=== PATIENT | male | born 1975 | race Caucasian/White ===

== ENCOUNTER 2017-10-15 14:48 | Emergency (ER) | payer MEDICARE ==
[2017-10-15] MEDS ORDERED: TORADOL IM ONE (16:50)
[2017-10-15 17:09] LABS: Basophils # (Auto) 0.1 K/mm3 (0.0-0.1); Basophils % (Auto) 0.4 % (0.0-1.8); Eosinophils # (Auto) 0.5 K/mm3 (0.0-0.4); Eosinophils % (Auto) 4.3 % (0.0-4.3); Hematocrit 40.2 % (35.5-45.6); Hemoglobin 13.3 gm/dl (11.8-15.2); Lymphocytes # (Auto) 1.4 K/mm3 (1.2-5.4); Lymphocytes % (Auto) 11.6 % (13.4-35.0); Mean Corpuscular HGB Conc 33 % (32-34); Mean Corpuscular Hemoglobin 27 pg (28-32); Mean Corpuscular Volume 81 fl (84-94); Monocytes # (Auto) 0.6 K/mm3 (0.0-0.8); Monocytes % (Auto) 5.2 % (0.0-7.3); Platelet Count 352 K/mm3 (140-440); Red Blood Count 4.96 M/mm3 (3.65-5.03); Red Cell Distribution Width 13.1 % (13.2-15.2)
[2017-10-15 17:31] LABS: BUN/Creatinine Ratio 17; Blood Urea Nitrogen 10 mg/dL (9-20); Calcium 8.9 mg/dL (8.4-10.2); Hemolysis Index 9
--- NOTE | 2017-10-15 18:40 | Emergency Department Report ---
- General Chief Complaint: Back Pain/Injury Stated Complaint: BODY PAIN Time Seen by Provider: 10/15/17 16:49 Source: patient Mode of arrival: Ambulatory Limitations: No Limitations - History of Present Illness Initial Comments: 41-year-old male presents with complaint of 2 weeks of body aches upper respiratory symptoms and cough. Patient states he was placed on course of antibiotics recently, states he was on azithromycin. Awake alert and oriented 3. Denies any current cough nausea vomiting. States he feels slightly weaker than usual. Patient denies abdominal pain dysuria or increased urinary frequency flank pain. Denies any shortness of breath or pleuritic chest pain. States his primary complaint is of diffuse body aches. Denies any trauma to chest or back. Patient is ambulatory without assistance. Denies palpitations. Denies any recent surgeries history of DVT or PE denies any steroid use. Patient traveled and is visiting [place] from [place]. Complaint: other (malaise) Onset/Timin -: week(s) Severity: moderate Quality: aching Consistency: intermittent Improves With: nothing Context: recent travel (states he traveled from [place] within the last 2 weeks) - Related Data Previous Rx's Medication Instructions Recorded Last Taken Type Acetaminophen/Codeine [Tylenol 1 tab PO Q6H PRN #8 tab 10/15/17 Unknown Rx /Codeine # 3 tab] Albuterol Sulfate [Ventolin Hfa] 1 gm IH Q4H PRN #1 hfa.aer.ad 10/15/17 Unknown Rx Levofloxacin [Levaquin TAB] 500 mg PO QDAY #6 tablet 10/15/17 Unknown Rx Naproxen 500 mg PO BID PRN #20 tablet 10/15/17 Unknown Rx ED Review of Systems ROS: Stated complaint: BODY PAIN Other details as noted in HPI Constitutional: malaise (2 weeks of ongoing malaise and body aches). denies: chills, fever Eyes: denies: eye pain, eye discharge, vision change ENT: denies: ear pain, throat pain Respiratory: denies: cough, shortness of breath, wheezing Cardiovascular: denies: chest pain, palpitations Endocrine: no symptoms reported Gastrointestinal: denies: abdominal pain, nausea, diarrhea Genitourinary: denies: urgency, dysuria Musculoskeletal: denies: back pain, joint swelling, arthralgia Skin: denies: rash, lesions Neurological: denies: headache, weakness, paresthesias Psychiatric: denies: anxiety, depression Hematological/Lymphatic: denies: easy bleeding, easy bruising ED Past Medical Hx - Past Medical History Previous Medical History?: No - Surgical History Past Surgical History?: No - Social History Smoking Status: Never Smoker Substance Use Type: None - Medications Home Medications: Home Medications Medication Instructions Recorded Confirmed Last Taken Type Acetaminophen/Codeine [Tylenol 1 tab PO Q6H PRN #8 tab 10/15/17 Unknown Rx /Codeine # 3 tab] Albuterol Sulfate [Ventolin Hfa] 1 gm IH Q4H PRN #1 hfa.aer.ad 10/15/17 Unknown Rx Levofloxacin [Levaquin TAB] 500 mg PO QDAY #6 tablet 10/15/17 Unknown Rx Naproxen 500 mg PO BID PRN #20 tablet 10/15/17 Unknown Rx ED Physical Exam - General Limitations: No Limitations General appearance: alert, in no apparent distress - Head Head exam: Present: atraumatic, normocephalic - Eye Eye exam: Present: normal appearance, PERRL, EOMI - ENT ENT exam: Present: mucous membranes moist - Neck Neck exam: Present: normal inspection, full ROM - Respiratory Respiratory exam: Present: normal lung sounds bilaterally (lungs clear to auscultation bilaterally). Absent: respiratory distress - Cardiovascular Cardiovascular Exam: Present: regular rate, normal rhythm. Absent: systolic murmur, diastolic murmur, rubs, gallop - GI/Abdominal GI/Abdominal exam: Present: soft (abdomen soft nontender nondistended four quadrants), normal bowel sounds - Rectal Rectal exam: Present: deferred - Extremities Exam Extremities exam: Present: normal inspection - Back Exam Back exam: Present: normal inspection - Neurological Exam Neurological exam: Present: alert, oriented X3, CN II-XII intact, normal gait - Psychiatric Psychiatric exam: Present: normal affect, normal mood - Skin Skin exam: Present: warm, dry, intact, normal color. Absent: rash ED Course Vital Signs 10/15/17 10/15/17 10/15/17 15:36 18:56 18:57 Temperature 98 F Pulse Rate 76 Respiratory 16 18 18 Rate Blood Pressure 142/89 O2 Sat by Pulse 96 Oximetry ED Medical Decision Making - Lab Data Result diagrams: 10/15/17 17:00 10/15/17 17:00 - Medical Decision Making A/P: URI, viral syndrome, left-sided infiltrates on chest x-ray, possible flulike syndrome 1-discussed with Dr. Delcid, will treat patient empirically with course of Levaquin 2-short course no code when necessary, naproxen when necessary, inhaler when necessary 3-vital signs stable for discharge 4- I emphasized to the patient should return to the ED for any persistent fevers above 100.4 Fahrenheit. Patient tolerating by mouth fluid and food without difficulty. I advised patient to follow up with primary care or to return to the ED for any inability to tolerate by mouth fluid or food persistent nausea and vomiting severe fevers/chills or fevers persistently above 100.4F despite antipyretic use, severe lethargy, chest pain, palpitations , shortness of breath at rest. Patient stated he understood my instructions. I advised patient to remain well-hydrated. Patient stated he understood my instructions Critical care attestation.: If time is entered above; I have spent that time in minutes in the direct care of this critically ill patient, excluding procedure time. ED Disposition Clinical Impression: Pulmonary infiltrates on CXR, Flu-like symptoms Disposition: - TO HOME OR SELFCARE Is pt being admited?: No Does the pt Need Aspirin: No Condition: Stable Instructions: Viral Syndrome (ED), Pneumonia (ED) Prescriptions: Acetaminophen/Codeine [Tylenol /Codeine # 3 tab] 1 tab PO Q6H PRN #8 tab PRN Reason: Pain Albuterol Sulfate [Ventolin Hfa] 1 gm IH Q4H PRN #1 hfa.aer.ad PRN Reason: Cough Levofloxacin [Levaquin TAB] 500 mg PO QDAY #6 tablet Naproxen 500 mg PO BID PRN #20 tablet PRN Reason: Pain Referrals: [facility] [Provider Group] - 3-5 Days Time of Disposition: 20:27
--- NOTE | 2017-10-15 18:40 | Emergency Department Report ---
Chief Complaint: Back Pain/Injury Stated Complaint: BODY PAIN Time Seen by Provider: 10/15/17 16:49 - HPI History of Present Illness: The patient's 41-year-old male presents for evaluation of thoracic and back pain. The patient reports 12 days of bilateral shoulder and low back pain. He states that his pain has been constant, sore aching in quality, exacerbated with movement, mildly relieved with ibuprofen. He says he was diagnosed with respiratory infection 2 weeks ago and treated with a Z-Alan. The patient denies blunt trauma to the back or shoulders, fall, fever, chills, night sweats, saddle anesthesia, paresthesias, numbness or tingling in the legs, leg weakness , urine or bowel incontinence or retention, difficulty ambulating, or other focal neurological deficits. The patient also denies redness or swelling to the back, IV drug use, history of cancer. - Exam Vital Signs: Vital Signs 10/15/17 15:36 Temperature 98 F Pulse Rate 76 Respiratory 16 Rate Blood Pressure 142/89 O2 Sat by Pulse 96 Oximetry MSE screening note: Focused history and physical exam performed. Due to findings the following was ordered: ED Medical Decision Making - Lab Data Result diagrams: 10/15/17 17:00 10/15/17 17:00 ED Disposition for MSE Condition: Stable Referrals: PRIMARY CARE, [Primary Care Provider] - 3-5 Days
[2017-10-15] MEDS ORDERED: NORCO 5/325 PO ONE (18:45)
[2017-10-15] MEDS ORDERED: TYLENOL PO ONE (18:45)
[2017-10-15] MEDS ORDERED: ZOFRAN ODT PO ONE (18:45)
--- NOTE | 2017-10-15 19:03 | XRay Report ---
FINAL REPORT PROCEDURE: XR SPINE THORACIC 3V TECHNIQUE: Thoracic spine radiographs, including AP and lateral projections. CPT 95240 HISTORY: Low back pain. COMPARISON: No prior studies are available for comparison. FINDINGS: Alignment: Normal . Vertebral body height: Normal . Disk spaces: Normal . Fracture(s): None . Bone mineralization: Normal . IMPRESSION: No radiographic evidence of acute abnormality. Limited visualization of the upper thoracic spine due to overlying structures.
--- NOTE | 2017-10-15 19:05 | XRay Report ---
FINAL REPORT PROCEDURE: XR CHEST ROUTINE 2V TECHNIQUE: PA and lateral chest radiographs were obtained. CPT 07218 HISTORY: Dyspnea. COMPARISON: Thoracic spine radiographs dated same day and time FINDINGS: Heart: Normal. Mediastinum/Vessels: Normal. Lungs/Pleural space: Mild left lower lobe opacity. Bony thorax: No acute osseous abnormality. Other: IMPRESSION: Left lower lobe opacity consider atelectasis. Cannot exclude pneumonia.
[2017-10-15] MEDS ORDERED: LEVAQUIN PO ONE (19:20)
[2017-10-15 20:25] VITALS: BP 107/65
== END 2017-10-15 20:44 | disposition home or self-care (01) ==
LOC: ED 14:48
DX: R91.8 Other nonspecific abnormal finding of lung field (principal)
CPT/HCPCS: 36415; 71046; 72072; 80048; 82550; 85025; 93005; 93010; 96372; 99284; J1885; Q0162

== ENCOUNTER 2017-10-16 11:47 | Inpatient (IN) | payer MEDICAID, MEDICARE ==
[2017-10-16 13:27] LABS: Bilirubin,Urine NEG (Negative); Blood,Urine NEG (Negative); Color,Urine Yellow (Yellow); Protein,Urine <15 mg/dL mg/dL (Negative); Urobilinogen,Urine < 2.0 mg/dL (<2.0)
[2017-10-16] MEDS ORDERED: NACL 0.9% 1000 ML 1,000 ML IV ONE ×2 (15:17→18:58)
[2017-10-16] MEDS ORDERED: MORPHINE IV ONE (15:18)
[2017-10-16 15:44] LABS: Basophils % (Auto) 0.4 % (0.0-1.8); Eosinophils # (Auto) 0.4 K/mm3 (0.0-0.4); Hematocrit 38.9 % (35.5-45.6); Hemoglobin 13.2 gm/dl (11.8-15.2); Lymphocytes # (Auto) 1.6 K/mm3 (1.2-5.4); Lymphocytes % (Auto) 15.2 % (13.4-35.0); Mean Corpuscular HGB Conc 34 % (32-34); Mean Corpuscular Hemoglobin 27 pg (28-32); Mean Corpuscular Volume 80 fl (84-94); Monocytes # (Auto) 0.7 K/mm3 (0.0-0.8); Monocytes % (Auto) 6.6 % (0.0-7.3); Platelet Count 351 K/mm3 (140-440); Red Blood Count 4.89 M/mm3 (3.65-5.03); Red Cell Distribution Width 13.3 % (13.2-15.2)
[2017-10-16 15:55] LABS: Bilirubin,Urine NEG (Negative); Blood,Urine NEG (Negative); Color,Urine Yellow (Yellow); Mucus,Urine FEW /HPF; Protein,Urine <15 mg/dL mg/dL (Negative); Urobilinogen,Urine < 2.0 mg/dL (<2.0)
[2017-10-16 16:02] LABS: Lipase 54 units/L (13-60)
[2017-10-16 16:07] LABS: Alanine Aminotransferase 14 units/L (7-56); Albumin 3.7 g/dL (3.9-5); BUN/Creatinine Ratio 13; Blood Urea Nitrogen 9 mg/dL (9-20); Calcium 9.4 mg/dL (8.4-10.2); Hemolysis Index 5
--- NOTE | 2017-10-16 16:45 | Emergency Department Report ---
HPI - HPI HPI: Patient seen in ER yesterday and diagnosed with left lower lobe pneumonia. Initially felt better after he left the ED. Today started having some urinary retention. He Dale like urinating, and had some suprapubic pressure, but could not urinate. He also started having some left flank pain. Therefore he presented to the ED for further help. -: Gradual Location: Left flank Radiation: none Migration to: no migration Severity scale (0 -10): 10 Quality: sharp Improves With: nothing Associated Symptoms: nausea, urinary retention, suprapubic pressure. <CHUCK OLEA - Last Filed: 10/16/17 19:58> <DIANN JERNIGNA - Last Filed: 10/16/17 22:11> - General Chief Complaint: Abdominal Pain Time Seen by Provider: 10/16/17 15:16 ED Past Medical Hx - Past Medical History Previous Medical History?: No Hx Hypertension: No Hx CVA: No - Surgical History Past Surgical History?: No - Social History Smoking Status: Never Smoker Substance Use Type: None <CHUCK OLEA - Last Filed: 10/16/17 19:58> <DIANN JERNIGAN - Last Filed: 10/16/17 22:11> - Medications Home Medications: Home Medications Medication Instructions Recorded Confirmed Last Taken Type Acetaminophen/Codeine [Tylenol 1 tab PO Q6H PRN #8 tab 10/15/17 Unknown Rx /Codeine # 3 tab] Albuterol Sulfate [Ventolin Hfa] 1 gm IH Q4H PRN #1 hfa.aer.ad 10/15/17 Unknown Rx Levofloxacin [Levaquin TAB] 500 mg PO QDAY #6 tablet 10/15/17 Unknown Rx Naproxen 500 mg PO BID PRN #20 tablet 10/15/17 Unknown Rx ED Review of Systems ROS: Stated complaint: UNABLE TO URINATE Other details as noted in HPI Comment: All other systems reviewed and negative Gastrointestinal: abdominal pain, nausea Musculoskeletal: back pain <CHUCK OLEA - Last Filed: 10/16/17 19:58> ROS: Stated complaint: UNABLE TO URINATE Other details as noted in HPI <DIANN JERNIGAN - Last Filed: 10/16/17 22:11> Physical Exam - Physical Exam Vital Signs: Vital Signs 10/16/17 10/16/17 12:11 15:09 Temperature 97.5 F L Pulse Rate 105 H Respiratory 20 Rate Blood Pressure 131/87 O2 Sat by Pulse 99 100 Oximetry Physical Exam: - Physical Exam Physical Exam: - General Limitations: No Limitations General appearance: alert, in no apparent distress, obese - Head Head exam: Present: atraumatic, normocephalic - Eye Eye exam: Present: normal appearance - ENT ENT exam: Present: mucous membranes moist - Neck Neck exam: Present: normal inspection - Respiratory Respiratory exam: Present: normal lung sounds bilaterally. Absent: respiratory distress - Cardiovascular Cardiovascular Exam: Present: normal rhythm, tachycardia. Absent: systolic murmur, diastolic murmur, rubs, gallop - GI/Abdominal GI/Abdominal exam: Present: soft, normal bowel sounds, left flank tenderness - Extremities Exam Extremities exam: Present: normal inspection - Back Exam Back exam: Present: normal inspection - Neurological Exam Neurological exam: Present: alert, oriented X3 - Psychiatric Psychiatric exam: normal affect and mood - Skin Skin exam: Present: warm, dry, intact, normal color. Absent: rash <CHUCK OLEA - Last Filed: 10/16/17 19:58> - Physical Exam Vital Signs: Vital Signs 10/16/17 10/16/17 12:11 15:09 Temperature 97.5 F L Pulse Rate 105 H Respiratory 20 Rate Blood Pressure 131/87 O2 Sat by Pulse 99 100 Oximetry <DIANN JERNIGAN - Last Filed: 10/16/17 22:11> ED Course Vital Signs 10/16/17 10/16/17 12:11 15:09 Temperature 97.5 F L Pulse Rate 105 H Respiratory 20 Rate Blood Pressure 131/87 O2 Sat by Pulse 99 100 Oximetry - Reevaluation(s) Reevaluation #1: 10/16/17 20:00 A Meek catheter was placed, patient voided about 1 L and a half, felt much better. Continued to have left chest area pain accompanied with shortness of breath, recent long flight from [place] will get CT chest to rule out PE. <CHUCK OLEA - Last Filed: 10/16/17 19:58> Vital Signs 10/16/17 10/16/17 12:11 15:09 Temperature 97.5 F L Pulse Rate 105 H Respiratory 20 Rate Blood Pressure 131/87 O2 Sat by Pulse 99 100 Oximetry <DIANN JERNIGAN - Last Filed: 10/16/17 22:11> ED Medical Decision Making - Lab Data Result diagrams: 10/16/17 15:28 10/16/17 15:28 <CHUCK OLEA - Last Filed: 10/16/17 19:58> - Lab Data Result diagrams: 10/16/17 15:28 10/16/17 15:28 - Medical Decision Making Patient was turned over to my care at shift change awaiting a CTA was on CTA does show persistent nodule to the left lung no PE. Differential does include carcinoma. Patient did start to swell symptom complex with flulike symptoms weeks ago his regular doctor thought it was maybe sinus put him on a Z-Alan and Tylenol patient has been taking Tylenol cold yesterday when he was seen that started Levaquin today he was having problems with urinary retention is a well- nourished 1 L in the ED he has also having generalized aches and pains and back pain. Denied any hemoptysis but he has had intermittent night sweats. Differential is carcinoma TB influenza came for a and other considerations for urinary retention as well as a nodule in the lung case was discussed with the hospitalist Dr. Loretta Tellez and [facility] will admit the patient <DIANN JERNIGAN - Last Filed: 10/16/17 22:11> Critical care attestation.: If time is entered above; I have spent that time in minutes in the direct care of this critically ill patient, excluding procedure time. <CHUCK OLEA - Last Filed: 10/16/17 19:58> Critical care attestation.: If time is entered above; I have spent that time in minutes in the direct care of this critically ill patient, excluding procedure time. <DIANN JERNIGAN - Last Filed: 10/16/17 22:11> ED Disposition <CHUCK OLEA - Last Filed: 10/16/17 19:58> Is pt being admited?: Yes Time of Disposition: 22:11 <DIANN JERNIGAN - Last Filed: 10/16/17 22:11> Clinical Impression: Lung nodule, Flu-like symptoms Disposition: OP ADMIT IP TO THIS HOSP Condition: Stable Referrals: PRIMARY CARE,MD [Primary Care Provider] - 3-5 Days
--- NOTE | 2017-10-16 17:01 | Cat Scan Report ---
FINAL REPORT EXAM: CT ABDOMEN PELVIS WO CON HISTORY: bilat flank pain r/o stones TECHNIQUE: Unenhanced stone protocol CT of the abdomen and pelvis at 2.5 millimeter axial increments. Coronal and sagittal reconstruction was also performed. PRIORS: CXR 10/15/2017 FINDINGS: There is no evidence for renal calculi or hydronephrosis. No evidence for ureteral or bladder calculus is seen. No evidence for renal or bladder mass is noted. Meek catheter balloon is present within urinary bladder. Otherwise, within the limits of a noncontrast exam, the liver, spleen, pancreas, gallbladder, and adrenal glands are unremarkable. No evidence for retroperitoneal or pelvic lymphadenopathy is seen. Moderate stool is present throughout the entire colon. Th small e bowel loops have normal caliber. No fluid collection, inflammatory change, or free air is seen within the abdomen or pelvis. The appendix is normal. Within the pelvis, the prostate is normal. Images through the upper abdomen include the lung bases which demonstrates similar rounded pleural-based opacity is seen on the chest x-ray. This currently measures 2.5 x 3.1 cm (axial image 9). This is most likely infectious, however, should be followed to complete resolution radiographically to exclude underlying mass. Bony structures show no focal abnormalities. IMPRESSION: 1. No evidence for renal calculi or renal obstruction. 2. Occasion in the left lower lobe similar to prior x-ray. This is likely infectious, however, should be followed to complete radiographic resolution to exclude underlying mass. 3. Moderate stool present throughout the colon which can be associated with constipation
[2017-10-16] MEDS ORDERED: FLOMAX PO ONE (19:55)
--- NOTE | 2017-10-16 20:41 | Cat Scan Report ---
FINAL REPORT PROCEDURE: CT ANGIO CHEST TECHNIQUE: Computerized tomographic angiography of the chest was performed after the IV injection of iodinated nonionic contrast including image processing. The image data was postprocessed using 2-dimensional multiplanar reformatted (MPR) and 3-dimensional (MIP and/or volume rendered) techniques. HISTORY: PNEUMONIA, SOB, R/O PE COMPARISON: No prior studies are available for comparison. FINDINGS: An irregular density measuring 2.3 x 2.3 centimeters is noted in the lateral segment left lower lobe which demonstrates inhomogeneous enhancement. It demonstrates a hypodense area within measuring 1.3 x 1.1 centimeters. An additional 8 millimeter nodule is noted in the left lower lobe lateral segment adjacent to bronchovascular bundle. Multiple small nodules are identified scattered in bilateral lungs measuring up to 5 millimeters. 1.5 centimeter left infrahilar lymph node is noted. There are also multiple mildly enlarged lymph nodes in the subcarinal and aortopulmonic regions. A small nonenlarged lymph node is noted in the left hilum measuring about 8 millimeters in short axis. Aorta is of normal caliber. Visualized thyroid demonstrates normal density. Bilateral pleural spaces are clear. Visualized upper abdominal structures are within normal limits. Vertebral height is normal.. IMPRESSION: Findings are most consistent with lung carcinoma left lower lobe with mediastinal and left hilar lymphadenopathy. Multiple small nodules scattered in bilateral lungs may represent metastatic nodules versus granulomas.
[2017-10-16] MEDS ORDERED: LEVAQUIN 750MG/150ML 750 MG/150 ML BAG IV SCH (23:14)
[2017-10-16] MEDS ORDERED: ZOFRAN IV PRN (23:15)
[2017-10-16] MEDS ORDERED: HEPARIN ONE (23:57)
[2017-10-16] MEDS ORDERED: LEVAQUIN 750MG/150ML 750 MG/150 ML BAG IV ONE (23:57)
[2017-10-17] MEDS ORDERED: DILAUDID ONE (00:06)
[2017-10-17] MEDS: HEPARIN SUB-Q SCH ×2 (00:07→09:31)
[2017-10-17] MEDS: DILAUDID IV PRN ×3 (00:10→12:06)
[2017-10-17 08:59] VITALS: BP 125/77
[2017-10-17] MEDS ORDERED: NACL 0.9% 1000 ML 1,000 ML IV SCH (11:00)
--- NOTE | 2017-10-17 14:01 | Discharge Summary ---
Providers - Providers Date of Admission: 10/16/17 23:09 Date of discharge: 10/17/17 Attending physician: SRIDHAR LANDRY MD 10/17/17 06:11 Consult to Physician [CONS] Routine Comment: Consulting Provider: BERNADINE SIMS Physician Instructions: BERNADINE SIMS Reason For Exam: LEFT LUNG NODULE/MASS POINTING TO CARCINOMA PER CT 10/17/17 10:03 Physical Therapy Evaluation and Treat [CONS] Routine Comment: Reason For Exam: deconditioning 10/17/17 10:33 Consult to Physician [CONS] Routine Comment: patient cathterized in the ED Consulting Provider: JANENE SOUZA Physician Instructions: Reason For Exam: acute urinary obstruction Primary care physician: [employer]IST Hospitalization Reason for admission: Acute urinary retention, left-sided pulmonary nodules Condition: Stable Pertinent studies: CT chest Hospital course: Patient was admitted last night for acute urinary retention secondary to prostatitis patient was catheterized and admitted to the floor. She was started with IV Levaquin. CTA showed pulmonary nodules on the left side of the lung most likely malignancy, has also had a lymphadenopathy. Pulmonary was consulted but before he was told by the pulmonary left against AMA. Patient said he has an important to try meeting today, so he is going to miss that meeting. Patient lives in [place] and have explained the management plan and is a he is going to there and started management. I talked to his urologist Dr Lees about the catheter and he is ok to send him while the catheter is in. She has family history of cancer, sister of sarcoma. Disposition: [id number] LEFT AGAINST MED ADVICE Time spent for discharge: 37 minutes - Discharge Diagnoses (1) Prostatitis Status: Acute (2) Acute urinary retention Status: Acute (3) Lung nodule Status: Acute Core Measure Documentation - Palliative Care Palliative Care/ Comfort Measures: Not Applicable - Core Measures Any of the following diagnoses?: none Exam - Physical Exam Narrative exam: Not in cardiopulmonary distress. The patient appeared well nourished and normally developed. Vital signs as documented. Head exam is unremarkable. No scleral icterus . Neck is without jugular venous distension, thyromegaly, or carotid bruits. Lungs are clear to auscultation. Cardiac exam reveals regular rate and Rhythm. First and second heart sounds normal. No murmurs, rubs or gallops. Abdominal exam reveals normal bowel sounds, no masses, no organomegaly and no aortic enlargement. Extremities are nonedematous and both femoral and pedal pulses are normal. catheter in place. WRESTLING COACH: Alert and oriented 3. No focal weakness. - Constitutional Vitals: Temp Pulse Resp BP Pulse Ox 98.0 F 88 18 125/77 98 10/17/17 07:11 10/17/17 07:11 10/17/17 07:11 10/17/17 07:11 10/17/17 07:11 Plan Activity: no restrictions Weight Bearing Status: Full Weight Bearing Diet: regular Follow up with: PRIMARY CAREMD [Primary Care Provider] - 3-5 Days
--- NOTE | 2017-10-19 00:21 | History and Physical Report ---
CHIEF COMPLAINT: Urinary retention. Other complaints include left flank pain and also flu like symptoms. HISTORY OF PRESENTING ILLNESS: The patient is a 41-year-old male who came to the Emergency Room on 10/15/2017 with a complaint of flu-like symptoms and was evaluated in the Emergency Room with x-ray showing left lung opacities suspicious for pneumonia. The patient felt better after the Emergency Room treatment and was sent home on oral antibiotics, Levaquin and ibuprofen for pain and also for fever. The patient came back the next day 10/16/2017 complaining about urinary retention and not feeling too good. There is also complaining of left flank pain. The patient had a Meek catheter routine with lot of urine drained out. There was no history of fever. There was history of chill. The patient also denies history of chest pain and denied history of shortness of breath. The patient had CT scan of the abdomen and CT angiogram of the chest done and CT angiogram of the chest showed a left lung nodule suspicious for cancer and the patient was presented for admission. PAST MEDICAL HISTORY: Unremarkable. PAST SURGICAL HISTORY: Unremarkable. FAMILY HISTORY: Family history is noncontributory. SOCIAL HISTORY: The patient lives with family. Does not smoke, does not drink alcohol, does not use illicit drug. MEDICATIONS: Include Tylenol No.3, albuterol inhaler, and Levaquin tablet as well as naproxen. ALLERGIES: There are no known drug allergies. REVIEW OF SYSTEMS: CONSTITUTIONAL: There is no fever, no chills, no diaphoresis, or malaise was present. HEENT: There is no headache or sore throat. CARDIOVASCULAR: There is no chest pain or orthopnea. RESPIRATORY: Symptoms of cough and congestion and history of shortness of breath the day before the patient presented. GASTROINTESTINAL: There is no nausea, no vomiting, no abdominal pain, diarrhea or constipation. NEUROLOGICAL: There is no numbness, no dizziness, no altered mental status. MUSCULOSKELETAL: There is no joint pain or swelling. DERMATOLOGICAL: There is no skin rash or itching. GENITOURINARY: There is history of dysuria, with no hematuria and also there is history of flank pain. Rest of system review is normal. PHYSICAL EXAMINATION: GENERAL: At the time of exam, the patient was found to be alert, oriented x 3, and not in acute distress. VITAL SIGNS: Show temperature of 98.1 degrees Fahrenheit, pulse of 89, respirations 16, blood pressure 126/81, O2 sat of 100% on room air. HEENT: Showed pupils to be equal, round, reactive to light and accommodation. Extraocular muscles are intact. NECK: Supple with no JVD or carotid bruit. CARDIOVASCULAR: Showed normal first and second heart sounds with no gallops or murmurs. RESPIRATORY: Showed good air entry on both sides of the lungs with no abnormal breath sounds. GASTROINTESTINAL: Showed abdomen to be full, soft, nontender with no organomegaly or rigidity. NEUROLOGICAL: Neuro exam shows no focal deficits. MUSCULOSKELETAL: Show no joint swelling or tenderness. DERMATOLOGICAL: Showing no skin rash. GENITOURINARY: Showing no costovertebral angle tenderness. PERTINENT LABORATORY AND IMAGING STUDY: The patient has CT angiogram of the chest that showed findings are most consistent with lung carcinoma in the left lower lobe with mediastinal and left hilar lymphadenopathy. Also, the CT angiogram shows multiple small nodules scattered in the bilateral lungs that radiologist said may represent metastatic nodules versus granuloma. The patient also has CT of the abdomen and pelvis done without contrast that shows no evidence of renal calculus or renal obstruction. There is finding of location in the left lower lobe similar to prior x-ray and the radiologist states it is likely infection and said this should be followed to complete radiographic resolution to exclude underlying mass. There is finding of moderate stool present throughout the colon which can be associated with constipation. DIAGNOSES: 1. Left lung nodule suspected to be carcinoma. 2. Urinary retention. 3. Constipation. PLAN: The patient will be admitted to medical floor and the patient will have pulmonary consult with Dr. Des Gutierrez because of the left lung nodule, believed to be lung carcinoma. Also, the patient will be on IV normal saline at 125 mL an hour and will be on IV morphine 2 mg every 4 hours as needed for pain and IV Zofran 4 mg every 6 hours for nausea and vomiting. The patient's home medication will be reviewed and applied accordingly. The patient will be on Tylenol 650 mg every 6 hours for fever and headache. JOB# [id number] OCN/NTS MTDD
== END 2017-10-17 13:12 | disposition left against medical advice (07) | DRG 727 ==
LOC: ED 11:47 → 3A 23:09
PROVIDERS: ADMIT Internal Medicine; ATTEND Internal Medicine
DX: N41.9 Inflammatory disease of prostate, unspecified (principal); J18.1 Lobar pneumonia, unspecified organism; R91.1 Solitary pulmonary nodule; K59.00 Constipation, unspecified; R33.9 Retention of urine, unspecified; Z79.899 Other long term (current) drug therapy; Z79.2 Long term (current) use of antibiotics; Z79.1 Long term (current) use of non-steroidal anti-inflammatories (NSAID); Z79.51 Long term (current) use of inhaled steroids; Z80.9 Family history of malignant neoplasm, unspecified
CPT/HCPCS: 36415; 71275; 74176; 80053; 81001; 82150; 83690; 85025; 87400; 96361; 96374; 96375; J1170; J1644; J1956; J2270; J2405; J7030; Q9967

== ENCOUNTER 2017-10-17 17:47 | Emergency (ER) | payer SELFPAY ==
[2017-10-17] MEDS ORDERED: MORPHINE IM ONE (19:34)
[2017-10-17] MEDS ORDERED: ZOFRAN IM ONE (19:34)
[2017-10-17] MEDS ORDERED: NACL 0.9% 1000 ML 1,000 ML IV ONE (19:46)
--- NOTE | 2017-10-17 19:50 | Emergency Department Report ---
ED General Adult HPI - General Chief complaint: Urogenital-Male Stated complaint: BACK PAIN Time Seen by Provider: 10/17/17 19:09 Source: patient, family Mode of arrival: Wheelchair Limitations: No Limitations - History of Present Illness Initial comments: Patient is 41 years old male with no significant past medical history. Patient signed AMA stating that he has an important meeting to attend. Patient was admitted for workup of left lung mass as possible lung carcinoma. Patient also found to have a urinary retention and a Meek catheter was placed. Patient is from [place] and he wanted to go back to [facility] can finish his workup over there. Patient is only complaining of back pain mainly to the left lower chest. No fever, nausea or vomiting. Patient stated that he'll elect to keep the catheter until he gets to [place]. -: Gradual - Related Data Previous Rx's Medication Instructions Recorded Last Taken Type Acetaminophen/Codeine [Tylenol 1 tab PO Q6H PRN #8 tab 10/15/17 10/16/17 Rx /Codeine # 3 tab] Albuterol Sulfate [Ventolin Hfa] 1 gm IH Q4H PRN #1 hfa.aer.ad 10/15/17 Unknown Rx Levofloxacin [Levaquin TAB] 500 mg PO QDAY #6 tablet 10/15/17 10/15/17 Rx Naproxen 500 mg PO BID PRN #20 tablet 10/15/17 10/16/17 Rx Lactulose 10 gm PO DAILY PRN #150 ml 10/17/17 Unknown Rx Levofloxacin [Levaquin TAB] 500 mg PO QDAY #3 tablet 10/17/17 Unknown Rx Ondansetron [Zofran Odt] 4 mg PO Q8HR PRN #14 tab.rapdis 10/17/17 Unknown Rx oxyCODONE /ACETAMINOPHEN [Percocet 1 tab PO Q6HR PRN #14 tablet 10/17/17 Unknown Rx 5/325] Allergies Allergy/AdvReac Type Severity Reaction Status Date / Time No Known Allergies Allergy Unverified 10/16/17 12:11 ED Review of Systems ROS: Stated complaint: BACK PAIN Other details as noted in HPI Comment: All other systems reviewed and negative Constitutional: denies: chills, fever Respiratory: denies: cough, orthopnea, shortness of breath, SOB with exertion, SOB at rest Gastrointestinal: denies: abdominal pain, nausea, vomiting, diarrhea Neurological: denies: headache, weakness, numbness, paresthesias ED Past Medical Hx - Past Medical History Previous Medical History?: Yes Hx Hypertension: No Hx CVA: No Additional medical history: possible lung problems - Surgical History Past Surgical History?: Yes Additional Surgical History: Right arm fracture - Social History Smoking Status: Never Smoker Substance Use Type: Prescribed - Medications Home Medications: Home Medications Medication Instructions Recorded Confirmed Last Taken Type Acetaminophen/Codeine [Tylenol 1 tab PO Q6H PRN #8 tab 10/15/17 10/16/17 Rx /Codeine # 3 tab] Albuterol Sulfate [Ventolin Hfa] 1 gm IH Q4H PRN #1 hfa.aer.ad 10/15/17 Unknown Rx Levofloxacin [Levaquin TAB] 500 mg PO QDAY #6 tablet 10/15/17 10/16/17 10/15/17 Rx Naproxen 500 mg PO BID PRN #20 tablet 10/15/17 10/16/17 10/16/17 Rx Lactulose 10 gm PO DAILY PRN #150 ml 10/17/17 Unknown Rx Levofloxacin [Levaquin TAB] 500 mg PO QDAY #3 tablet 10/17/17 Unknown Rx Ondansetron [Zofran Odt] 4 mg PO Q8HR PRN #14 tab.rapdis 10/17/17 Unknown Rx oxyCODONE /ACETAMINOPHEN [Percocet 1 tab PO Q6HR PRN #14 tablet 10/17/17 Unknown Rx 5/325] ED Physical Exam - General Limitations: No Limitations General appearance: alert, in no apparent distress - Head Head exam: Present: atraumatic, normocephalic, normal inspection - Eye Eye exam: Present: normal appearance, PERRL - ENT ENT exam: Present: normal exam, normal orophraynx, mucous membranes moist - Neck Neck exam: Present: normal inspection, full ROM. Absent: tenderness, meningismus - Respiratory Respiratory exam: Present: normal lung sounds bilaterally. Absent: respiratory distress, wheezes, rales, rhonchi, chest wall tenderness, accessory muscle use, decreased breath sounds, prolonged expiratory - Cardiovascular Cardiovascular Exam: Present: regular rate, normal rhythm, normal heart sounds - GI/Abdominal GI/Abdominal exam: Present: soft, normal bowel sounds, mass. Absent: distended , tenderness, guarding, rebound, rigid, organomegaly, bruit, pulsatile mass - Extremities Exam Extremities exam: Present: normal inspection, full ROM, normal capillary refill - Back Exam Back exam: Present: normal inspection, full ROM - Neurological Exam Neurological exam: Present: alert, oriented X3, CN II-XII intact, normal gait - Skin Skin exam: Present: warm, intact, normal color ED Course Vital Signs 10/17/17 10/17/17 18:06 18:51 Temperature 98 F 97.6 F Pulse Rate 107 H 94 H Respiratory 20 16 Rate Blood Pressure 122/81 Blood Pressure 120/80 [Right] O2 Sat by Pulse 96 100 Oximetry Critical care attestation.: If time is entered above; I have spent that time in minutes in the direct care of this critically ill patient, excluding procedure time. ED Disposition Clinical Impression: Acute urinary retention, Back pain Disposition: DC-01 TO HOME OR SELFCARE Is pt being admited?: No Condition: Stable Instructions: Urinary Retention in Men (ED) Additional Instructions: To Whom It May Concern, this patient is clear to fly with his urinary catheter. If you have any concern please call [facility] [place] [facility]. Referrals: JOSE GOLDBERG MD [Primary Care Provider] - 3-5 Days
[2017-10-17 21:11] VITALS: BP 121/78
== END 2017-10-17 22:38 | disposition home or self-care (01) ==
LOC: ED 17:47
DX: M54.9 Dorsalgia, unspecified (principal); R33.9 Retention of urine, unspecified
CPT/HCPCS: 96360; 96372; 99282; J2270; J2405; J7030